=== PATIENT | female | born 1980 | race Caucasian/White ===

== ENCOUNTER 2019-02-08 17:54 | Emergency (ER) | payer BC ==
[2019-02-08 18:05] VITALS: BP 166/76; PULSE 50; RESP 16; TEMP 97.4
--- NOTE | 2019-02-08 18:14 | ED ---
Wound/Laceration HPI - General Chief Complaint: Wound/Laceration Stated Complaint: Finger laceration Time Seen by Provider: 02/08/19 18:07 Source: patient Mode of arrival: ambulatory - History of Present Illness Initial Comments: Patient is a 39-year-old female presenting to emergency Department with a chief complaint of a laceration. Patient reports she dropped a weight on the finger causing a laceration on the palmar aspect. Patient reports pain on the distal end of the left fourth digit. Patient reports minimal pain and she has been applying ice compress to minimize his symptoms. Patient has full range of motion a digit. Says tetanus shot is up-to-date. Denies any numbness or tingling. - Related Data Allergies Allergy/AdvReac Type Severity Reaction Status Date / Time No Known Allergies Allergy Verified 02/08/19 18:05 Review of Systems ROS Statement: Those systems with pertinent positive or pertinent negative responses have been documented in the HPI. ROS Other: All systems not noted in ROS Statement are negative. Past Medical History Past Medical History: No Reported History History of Any Multi-Drug Resistant Organisms: None Reported Past Surgical History: No Surgical Hx Reported Past Psychological History: No Psychological Hx Reported Smoking Status: Never smoker Past Alcohol Use History: None Reported Past Drug Use History: None Reported General Exam Limitations: no limitations General appearance: alert, in no apparent distress Head exam: Present: atraumatic, normocephalic, normal inspection Eye exam: Present: normal appearance Pupils: Present: normal accommodation ENT exam: Present: normal exam, normal oropharynx, mucous membranes moist, TM's normal bilaterally, normal external ear exam Neck exam: Present: normal inspection, full ROM Respiratory exam: Present: normal lung sounds bilaterally Cardiovascular Exam: Present: regular rate, normal rhythm, normal heart sounds Extremities exam: Present: full ROM, tenderness (Tenderness at the site of laceration.). Absent: normal inspection (Laceration to the left fourth digit measuring about 7 mm.) Back exam: Present: normal inspection, full ROM Neurological exam: Present: alert, oriented X3 Psychiatric exam: Present: normal affect, normal mood Skin exam: Present: warm, dry, intact, normal color Course Vital Signs 02/08/19 18:01 Temperature 97.4 F L Pulse Rate 50 L Respiratory 16 Rate Blood Pressure 166/76 O2 Sat by Pulse 100 Oximetry Procedures - Laceration Laceration #2 Consent Obtained: verbal consent Indication: laceration Site: hand (Left fourth digit) Size (cm): 1 Description: linear Depth: simple, single layer Sedation/Analgesia: none Anesthetic Used: lidocaine 1% Anesthesia Technique: local infiltration Amount (mls): 5 Pre-repair: irrigated extensively Type of Sutures: nylon Size of Sutures: 4-0 Number of Sutures: 3 Technique: simple, interrupted Complications: bleeding Patient Tolerated Procedure: well, no complications Medical Decision Making - Medical Decision Making Patient is a 39-year-old female presenting to the emergency room with a chief complaint of a laceration. On exam patient is a laceration measuring about 1 cm on the left fourth digit. This was traumatic injury when a weight fell on the finger. X-ray shows no signs of fractures. 3 sutures applied. Patient tolerat ed procedure well. Patient vised to return to emergency Department in 7-10 days for suture removal. Strict return parameters were thoroughly discussed with patient was understanding and agreeable. Patient advised to alternate between Tylenol and ibuprofen for pain control. Patient advised to follow proper wound care structures. Case discussed with physician. Disposition Clinical Impression: Laceration Disposition: HOME SELF-CARE Condition: Stable Instructions (If sedation given, give patient instructions): Care For Your Stitches (DC), Laceration (DC) Additional Instructions: Please return to emergency department for suture removal in 7-10 days. Please follow proper wound care instructions. Please return to emergency department sooner if symptoms worsen. Is patient prescribed a controlled substance at d/c from ED?: No Referrals: None,Stated [Primary Care Provider] - 1-2 days Time of Disposition: 18:58
[2019-02-08] MEDS: LIDOCAINE 1% INJ 10MG/ML (20 ML MDV) SQ ONE (18:15)
--- NOTE | 2019-02-08 18:33 | XR ---
EXAMINATION TYPE: XR hand limited LT DATE OF EXAM: 02/08/2019 COMPARISON: NONE HISTORY: Fourth digit pain TECHNIQUE: 2 views FINDINGS: Metacarpals are intact. I see no fracture nor dislocation. There are no erosions. Joint spa [place] are fairly normal. IMPRESSION: Negative left hand exam. No fracture.
== END 2019-02-08 19:05 | disposition home or self-care (01) ==
LOC: EC 17:54
DX: S61.215A Laceration without foreign body of left ring finger without damage to nail, initial encounter (principal); W20.8XXA Other cause of strike by thrown, projected or falling object, initial encounter; Y92.009 Unspecified place in unspecified non-institutional (private) residence as the place of occurrence of the external cause
CPT/HCPCS: 73120; 99283; 12001; J2001

== ENCOUNTER → 2022-07-28 | Outpatient (CLI) | payer BC ==
[2022-07-28 13:53] LABS: HCT 42.7 % (37.2-46.3); HGB 13.4 g/dL (12.0-15.0); MCH 32.8 pg (27.0-32.0); MCHC 31.4 g/dL (32.0-37.0); MCV 104.4 fL (80.0-97.0); Mean Platelet Volume 10.1 fL (9.5-12.2); NRBC Per 100 WBC 0.7 /100 WBCS (0.0-0.0); Platelet Count 230 X 10*3/uL (140-440); RBC 4.09 X 10*6/uL (4.10-5.20); RDW 12.5 % (11.5-14.5); WBC 4.15 X 10*3/uL (4.50-10.00)
[2022-07-28 15:05] LABS: ALT 22 U/L (8-44); AST 24 U/L (13-35); African American GFR (CKD) 76.9 (60.0-200.0); Albumin 4.6 g/dL (3.8-4.9); Alkaline Phosphatase 35 U/L (41-126); BUN/Creat Ratio 14.86 Ratio (12.00-20.00); Blood Urea Nitrogen 15.6 mg/dL (9.0-27.0); Calcium 9.4 mg/dL (8.7-10.3); Carbon Dioxide 21.7 mmol/L (20.0-27.5); Chloride 107 mmol/L (96-109); Chol/HDL Ratio 2.75 Ratio; Globulin 2.2 g/dL (1.6-3.3); Glucose 80 mg/dL (70-110); LDL Cholesterol,Calculated 147.7 mg/dL (0.0-131.0); Non-African American GFR(CKD) 66.4 (60.0-200.0); Potassium 4.3 mmol/L (3.5-5.5); Sodium 140 mmol/L (135-145); Total Protein 6.8 g/dL (6.2-8.2)
--- NOTE | 2022-07-29 09:45 | MM ---
Reason for Exam: Screening (asymptomatic). Baseline mammogram. Patient History: Menarche at age 15. First Full-Term at age 23. Patient has history of breast feeding. Patient used Hormonal Contraceptives for 10 years. 06/29/2007, Bilateral Implants. Maternal grandmother had breast cancer at or over age 50. Last menstrual period: 07/28/2022 Risk Values: Karishma 5 year model risk: 0.5%. NCI Lifetime model risk: 9.0%. Prior Study Comparison: Patient's first Mammogram. Tissue Density: The breast tissue is extremely dense which could obscure a lesion on mammography. Findings: Analyzed By CAD. Bilateral retropectoral silicone implants are present. Possible 2.3 cm ovoid mass or cyst superior right breast versus a prominent lobule of fibroglandular tissue. Further ultrasound evaluation is recommended. Otherwise, there is no suspicious group of microcalcifications or other discrete abnormality seen in either breast. Overall Assessment: Incomplete: need additional imaging evaluation, BI-RAD 0 Management: Diagnostic Breast Ultrasound of the right breast. Entire breast, particular attention to the superior aspect where a 2.3 cm oval cyst or mass may be present. [facility] will attempt to contact patient to return for supplemental views and ultrasound if indicated. Electronically signed and approved by: Paige Sharp M.D. Radiologist
== END | disposition home or self-care (01) ==
LOC: RADMAMWWP 06:57
PROVIDERS: ATTEND Obstetrics & Gynecology
DX: Z12.31 Encounter for screening mammogram for malignant neoplasm of breast (principal); Z13.220 Encounter for screening for lipoid disorders; Z13.29 Encounter for screening for other suspected endocrine disorder; Z80.3 Family history of malignant neoplasm of breast
CPT/HCPCS: 77063; 77067; 80053; 80061; 84439; 84443; 84479; 85027

== ENCOUNTER → 2022-08-06 | Outpatient (CLI) | payer BC ==
--- NOTE | 2022-08-06 09:06 | USB ---
Reason for Exam: Additional evaluation requested from abnormal screening. Patient History: Menarche at age 15. First Full-Term at age 23. Patient has history of breast feeding. Patient used Hormonal Contraceptives for 10 years. 06/29/2007, Bilateral Implants. Maternal grandmother had breast cancer at or over age 50. Risk Values: Karishma 5 year model risk: 0.5%. NCI Lifetime model risk: 9.0%. Technique: Method: Whole Breast Handheld. Prior Study Comparison: 07/28/2022 Bilateral MG 3D screen mammo imp/cad., [facility]. Findings: The whole breast of the right breast, the axilla of the right breast and the retroareolar of the right breast were scanned. Imaged: Ultrasound imaging of: Area of concern, retroareolar region and axilla. Masslike area of fibroglandular tissue at 11:00 4 cm from the nipple correlates with finding on mammography. No evidence for organizing fluid collection or mass. Overall Assessment: Benign, BI-RAD 2 Management: Screening Mammogram of the right breast in 1 year. A clinical breast exam by your physician is recommended on an annual basis and results should be correlated with mammographic findings. This exam should not preclude additional follow-up of suspicious palpable abnormalities. Results were given to the patient verbally at the time of exam. Electronically signed and approved by: Mario Null DO
== END | disposition home or self-care (01) ==
LOC: RADUSWWP 08:27
PROVIDERS: ATTEND Obstetrics & Gynecology
DX: R92.8 Other abnormal and inconclusive findings on diagnostic imaging of breast (principal); Z80.3 Family history of malignant neoplasm of breast

== ENCOUNTER 2023-01-14 09:34 | Emergency (ER) | payer BC ==
[2023-01-14 10:02] VITALS: BP 129/80; PULSE 52; RESP 20; TEMP 97.8
--- NOTE | 2023-01-14 10:19 | ED ---
General Adult HPI - General Chief complaint: Chest Pain Stated complaint: chest pressure/pain Time Seen by Provider: 01/14/23 09:50 Source: patient, RN notes reviewed, old records reviewed Mode of arrival: ambulatory Limitations: no limitations - History of Present Illness Initial comments: This is a 42-year-old female who presents to the emergency department complaining of 2 day history of some chest heaviness particularly when she breathes deep. Patient has no history of any lung problems. Patient has no medical problem. Patient states she had an extremely stressful week. Patient states she is not short of breath but it feels like she needs to continue breath. Patient denies any fever chills or cough. Patient denies any abdominal pain. Patient denies back pain. Patient states the pressure when she takes deep breath does not radiate anywhere. Patient denies headache patient denies numbness weakness. Patient denies lightheadedness or dizziness. - Related Data Home Medications Medication Instructions Recorded Confirmed Multivitamins, Thera [Multivitamin 1 tab PO DAILY 01/14/23 01/14/23 (formulary)] Allergies Allergy/AdvReac Type Severity Reaction Status Date / Time No Known Allergies Allergy Verified 01/14/23 11:03 Review of Systems ROS Statement: Those systems with pertinent positive or pertinent negative responses have been documented in the HPI. ROS Other: All systems not noted in ROS Statement are negative. Past Medical History Past Medical History: No Reported History History of Any Multi-Drug Resistant Organisms: None Reported Past Surgical History: No Surgical Hx Reported Past Psychological History: No Psychological Hx Reported Smoking Status: Never smoker Past Alcohol Use History: Occasional Past Drug Use History: None Reported General Exam - General Exam Comments Initial Comments: GENERAL: Patient is well-developed and well-nourished. Patient is nontoxic and well- hydrated and is in mild distress. ENT: Neck is soft and supple. No significant lymphadenopathy is noted. Oropharynx is clear. Moist mucous membranes. Neck has full range of motion without eliciting any pain. EYES: The sclera were anicteric and conjunctiva were pink and moist. Extraocular movements were intact and pupils were equal round and reactive to light. Eyelids were unremarkable. PULMONARY: Unlabored respirations. Good breath sounds bilaterally. No audible rales rhonchi or wheezing was noted. CARDIOVASCULAR: Patient is bradycardic at 50 beats a minute. ABDOMEN: Soft and nontender with normal bowel sounds. SKIN: Skin is clear with no lesions or rashes and otherwise unremarkable. NEUROLOGIC: Patient is alert and oriented x3. Cranial nerves II through XII are grossly intact. Motor and sensory are also intact. Normal speech, volume and content. Symmetrical smile. MUSCULOSKELETAL: Normal extremities with adequate strength and full range of motion. LYMPHATICS: No significant lymphadenopathy is noted PSYCHIATRIC: Normal psychiatric evaluation. Limitations: no limitations Course Vital Signs 01/14/23 09:40 Temperature 97.8 F Pulse Rate 52 L Respiratory 20 Rate Blood Pressure 129/80 O2 Sat by Pulse 96 Oximetry Medical Decision Making - Medical Decision Making EKG is interpreted by myself. EKG shows sinus bradycardia at 49 bpm IN interval is 206 QRS is 91 QT interval 440 QTC is 410. Patient's EKG shows no ST segment elevation or depression. Was pt. sent in by a medical professional or institution (, PA, TALENT DIRECTOR, urgent care, hospital, or [facility]...) When possible be specific @ -No Did you speak to anyone other than the patient for history (EMS, parent, family, police, friend...)? What history was obtained from this source @ -No Did you review nursing and triage notes (agree or disagree)? Why? @ -I reviewed and agree with nursing and triage notes Were old charts reviewed (outside hosp., previous admission, EMS record, old EKG, old radiological studies, urgent care reports/EKG's, [facility] records)? Report findings @ -No old charts were reviewed Differential Diagnosis (chest pain, altered mental status, abdominal pain women, abdominal pain men, vaginal bleeding, weakness, fever, dyspnea, syncope, headache, dizziness, GI bleed, back pain, seizure, CVA, palpatations, mental health, musculoskeletal)? @ -Differential Chest Pain: Stable Angina, Unstable Angina, STEMI, NSTEMI Aortic Dissection, Pneumothorax, Musculoskeletal, Esophageal Spasm GERD, Cholecystitis, Pancreatitis, Zoster, this is not meant to be an all-inclusive list. EKG interpreted by me (3pts min.). @ -As above X-rays interpreted by me (1pt min.). @ -Chest x-ray shows no acute abnormality CT interpreted by me (1pt min.). @ -None done U/S interpreted by me (1pt. min.). @ -None done What testing was considered but not performed or refused? (CT, X-rays, U/S, labs)? Why? @ -None What meds were considered but not given or refused? Why? @ -None Did you discuss the management of the patient with other professionals (professionals i.e. , PA, TALENT DIRECTOR, lab, RT, psych nurse, social media assistant, medical chemist, teacher, security flex officer, field nurse case manager)? Give summary @ -No Was smoking cessation discussed for >3mins.? @ -No Was critical care preformed (if so, how long)? @ -No Were there social determinants of health that impacted care today? How? (Homelessness, low income, unemployed, alcoholism, drug addiction, transportation, low edu. Level, literacy, decrease access to med. care, usp, rehab)? @ -No Was there de-escalation of care discussed even if they declined (Discuss DNR or withdrawal of care, Hospice)? DNR status @ -No What co-morbidities impacted this encounter? (DM, HTN, Smoking, COPD, CAD, Cancer, CVA, ARF, Chemo, Hep., AIDS, mental health diagnosis, sleep apnea, morbid obesity)? @ -None Was patient admitted / discharged? Hospital course, mention meds given and route, prescriptions, significant lab abnormalities, going to OR and other pertinent info. @ -Patient continued to have some chest discomfort with deep breathing during her ED course. Patient's troponin was normal patient's d-dimer was within normal range. Patient's chest x-ray was normal. Patient's remaining lab work was all within normal range. Patient had no risk factors for any cardiac disease. In her pain was mostly with breathing and it was at this time I thought she could be discharged home and patient was comfortable with that and she'll follow-up as needed with her primary medical care doctor Undiagnosed new problem with uncertain prognosis? @ -No Drug Therapy requiring intensive monitoring for toxicity (Heparin, Nitro, Insulin, Cardizem)? @ -No Were any procedures done? @ -No Diagnosis/symptom? @ -Pleuritic chest pain Acute, or Chronic, or Acute on Chronic? @ -Acute Uncomplicated (without systemic symptoms) or Complicated (systemic symptoms)? @ -Complicated Side effects of treatment? @ -No Exacerbation, Progression, or Severe Exacerbation? @ -No Poses a threat to life or bodily function? How? (Chest pain, USA, DC, pneumonia, PE, COPD, DKA, ARF, appy, cholecystitis, CVA, Diverticulitis, Homicidal, Suicidal, threat to staff... and all critical care pts) @ -No - Lab Data Result diagrams: 01/14/23 10:15 01/14/23 10:15 Lab Results 01/14/23 01/14/23 01/14/23 Range/Units 10:15 10:15 10:15 WBC 5.7 (3.8-10.6) k/uL RBC 4.18 (3.80-5.40) m/uL Hgb 13.9 (11.4-16.0) gm/dL Hct 40.9 (34.0-46.0) % MCV 97.9 (80.0-100.0) fL MCH 33.2 (25.0-35.0) pg MCHC 34.0 (31.0-37.0) g/dL RDW 12.6 (11.5-15.5) % Plt Count 234 (150-450) k/uL MPV 7.7 Neutrophils % 67 % Lymphocytes % 19 % Monocytes % 10 % Eosinophils % 2 % Basophils % 0 % Neutrophils # 3.8 (1.3-7.7) k/uL Lymphocytes # 1.1 (1.0-4.8) k/uL Monocytes # 0.6 (0-1.0) k/uL Eosinophils # 0.1 (0-0.7) k/uL Basophils # 0.0 (0-0.2) k/uL PT 10.4 (10.0-12.5) sec INR 0.9 (<1.2) APTT 24.6 (22.0-30.0) sec D-Dimer 0.37 (<0.60) mg/L FEU Sodium 137 (137-145) mmol/L Potassium 4.7 (3.5-5.1) mmol/L Chloride 107 (98-107) mmol/L Carbon Dioxide 21 L (22-30) mmol/L Anion Gap 9 mmol/L BUN 13 (7-17) mg/dL Creatinine 0.95 (0.52-1.04) mg/dL Est GFR (CKD-EPI)AfAm 87 (>60 ml/min/1.73 sqM) Est GFR (CKD-EPI)NonAf 76 (>60 ml/min/1.73 sqM) Glucose 87 (74-99) mg/dL Plasma Lactic Acid Porter (0.7-2.0) mmol/L Calcium 9.5 (8.4-10.2) mg/dL Magnesium 2.0 (1.6-2.3) mg/dL Total Bilirubin 1.0 (0.2-1.3) mg/dL AST 25 (14-36) U/L ALT 13 (4-34) U/L Alkaline Phosphatase 35 L (38-126) U/L Troponin I (0.000-0.034) ng/mL Total Protein 7.4 (6.3-8.2) g/dL Albumin 4.5 (3.5-5.0) g/dL 01/14/23 01/14/23 Range/Units 10:15 10:15 WBC (3.8-10.6) k/uL RBC (3.80-5.40) m/uL Hgb (11.4-16.0) gm/dL Hct (34.0-46.0) % MCV (80.0-100.0) fL MCH (25.0-35.0) pg MCHC (31.0-37.0) g/dL RDW (11.5-15.5) % Plt Count (150-450) k/uL MPV Neutrophils % % Lymphocytes % % Monocytes % % Eosinophils % % Basophils % % Neutrophils # (1.3-7.7) k/uL Lymphocytes # (1.0-4.8) k/uL Monocytes # (0-1.0) k/uL Eosinophils # (0-0.7) k/uL Basophils # (0-0.2) k/uL PT (10.0-12.5) sec INR (<1.2) APTT (22.0-30.0) sec D-Dimer (<0.60) mg/L FEU Sodium (137-145) mmol/L Potassium (3.5-5.1) mmol/L Chloride (98-107) mmol/L Carbon Dioxide (22-30) mmol/L Anion Gap mmol/L BUN (7-17) mg/dL Creatinine (0.52-1.04) mg/dL Est GFR (CKD-EPI)AfAm (>60 ml/min/1.73 sqM) Est GFR (CKD-EPI)NonAf (>60 ml/min/1.73 sqM) Glucose (74-99) mg/dL Plasma Lactic Acid Porter 1.0 (0.7-2.0) mmol/L Calcium (8.4-10.2) mg/dL Magnesium (1.6-2.3) mg/dL Total Bilirubin (0.2-1.3) mg/dL AST (14-36) U/L ALT (4-34) U/L Alkaline Phosphatase (38-126) U/L Troponin I <0.012 (0.000-0.034) ng/mL Total Protein (6.3-8.2) g/dL Albumin (3.5-5.0) g/dL Disposition Clinical Impression: Pleuritic chest pain Disposition: HOME SELF-CARE Condition: Good Instructions (If sedation given, give patient instructions): Chest Pain (ED) Is patient prescribed a controlled substance at d/c from ED?: No Referrals: None,Stated [Primary Care Provider] - 1-2 days Time of Disposition: 11:30
[2023-01-14 10:42] LABS: Basophils % (A) 0 %; Eosinophils # (A) 0.1 k/uL (0-0.7); Eosinophils % (A) 2 %; HCT 40.9 % (34.0-46.0); HGB 13.9 gm/dL (11.4-16.0); Lymphocytes # (A) 1.1 k/uL (1.0-4.8); Lymphocytes % (A) 19 %; MCH 33.2 pg (25.0-35.0); MCV 97.9 fL (80.0-100.0); Mean Platelet Volume 7.7; Monocytes # (A) 0.6 k/uL (0-1.0); Monocytes % (A) 10 %; Neutrophils # (A) 3.8 k/uL (1.3-7.7); Neutrophils % (A) 67 %; Platelet Count 234 k/uL (150-450); RBC 4.18 m/uL (3.80-5.40); RDW 12.6 % (11.5-15.5); WBC 5.7 k/uL (3.8-10.6)
[2023-01-14 10:58] LABS: INR 0.9 (<1.2); Partial Thromboplastin Time 24.6 sec (22.0-30.0); Prothrombin Time 10.4 sec (10.0-12.5)
--- NOTE | 2023-01-14 11:06 | XR ---
EXAMINATION TYPE: XR chest 2V DATE OF EXAM: 01/14/2023 COMPARISON: NONE TECHNIQUE: PA and lateral views submitted. HISTORY: Difficulty breathing FINDINGS: The lungs are clear and there is no pneumothorax, pleural effusion, or focal pneumonia. Heart size normal and no overt failure. Osseous structures demonstrate hypertrophic and degenerative changes of the spine. Hyperinflation of the lungs correlate for COPD. IMPRESSION: 1. No acute process.
[2023-01-14 11:14] LABS: ALT 13 U/L (4-34); AST 25 U/L (14-36); African American GFR (CKD) 87 (>60 ml/min/1.73 sqM); Albumin 4.5 g/dL (3.5-5.0); Alkaline Phosphatase 35 U/L (38-126); Anion Gap 9 mmol/L; Blood Urea Nitrogen 13 mg/dL (7-17); Calcium 9.5 mg/dL (8.4-10.2); Carbon Dioxide 21 mmol/L (22-30); Chloride 107 mmol/L (98-107); Glucose 87 mg/dL (74-99); Non-African American GFR(CKD) 76 (>60 ml/min/1.73 sqM); Potassium 4.7 mmol/L (3.5-5.1); Sodium 137 mmol/L (137-145); Total Protein 7.4 g/dL (6.3-8.2)
== END 2023-01-14 12:17 | disposition home or self-care (01) ==
LOC: EC 09:34
DX: R07.89 Other chest pain (principal)
CPT/HCPCS: 36415; 71046; 80053; 83605; 83735; 84484; 85025; 85379; 85610; 85730; 93005; 99285

== ENCOUNTER → 2023-11-18 | Outpatient (CLI) | payer BC ==
--- NOTE | 2023-11-28 12:42 | MM ---
Reason for Exam: Screening (asymptomatic). Last mammogram was performed 1 year(s) and 4 month(s) ago. Patient History: Menarche at age 15. First Full-Term at age 23. Patient has history of breast feeding. Patient used Hormonal Contraceptives for 10 years. 06/29/2007, Bilateral Implants. Maternal grandmother had breast cancer at or over age 50. Last menstrual period: 11/11/2023 Risk Values: Karishma 5 year model risk: 0.5%. NCI Lifetime model risk: 9.0%. Prior Study Comparison: 07/28/2022 Bilateral MG 3D screen mammo imp/cad., [facility]. Tissue Density: There are scattered areas of fibroglandular density. Findings: Analyzed By CAD. Bilateral breast implants appear intact. Right breast: There is no suspicious group of microcalcifications or new suspicious mass. Left breast: There is no suspicious group of microcalcifications or new suspicious mass. Overall Assessment: Negative, BI-RAD 1 Management: Screening Mammogram of both breasts in [address] [facility] will attempt to contact patient to return for supplemental views and ultrasound if indicated. Patient should continue monthly self-breast exams. A clinical breast exam by your physician is recommended on an annual basis. This exam should not preclude additional follow-up of suspicious palpable abnormalities. Note on Karishma scores and lifetime risk: 1. A Karishma score greater than 3% is considered moderate risk. If this is the case, consider specialist referral to assess eligibility for a risk reducing agent. 2. If overall lifetime risk for the development of breast cancer is 20% or higher, the patient may qualify for future screening with alternating mammogram and breast MRI. [facility], , 11/28/2023 12:39 PM. Electronically signed and approved by: Mario Null DO
== END | disposition home or self-care (01) ==
LOC: RADMAMWWP 07:34
PROVIDERS: ATTEND Obstetrics & Gynecology
DX: Z12.31 Encounter for screening mammogram for malignant neoplasm of breast
CPT/HCPCS: 77063; 77067